=== PATIENT | female | born 1985 ===

== ENCOUNTER 2017-07-28 21:29 | Emergency (ER) | payer MEDICAID ==
[2017-07-28 21:31] VITALS: BMI 25.4
[2017-07-28 21:34] VITALS: BP 104/63; TEMP 97.3
--- NOTE | 2017-07-28 21:44 | ED PDOC ---
HPI: Seizure Time Seen by Provider: 07/28/17 21:44 Chief Complaint (Nursing): Seizure Chief Complaint (Provider): Seizure History Per: Patient Additional Complaint(s): Patient is a 32 yo female, PMH of Epilepsy, Bipolar, Depression, Anxiety and Schizophrenia, presents to ED after suffering a witnessed seizure at home, lasting "10 minutes," according to Pts cousin. Pt's cousin reports he caught her and laid her down on the floor during seizure, ontop of a pillow, no head injury sustained. Pt admits to not taking her Dilantin for ~ 6 months now. Admits to heroin and marijuana use yesterday. AA&OX3. Speech clear. Pt bit her tongue during event. Past Medical History Reviewed: Nursing Documentation, Vital Signs Vital Signs: Last Vital Signs Temp 97.3 F L 07/28/17 21:31 Pulse 81 07/28/17 21:31 Resp 16 07/28/17 21:31 BP 104/63 07/28/17 21:31 Pulse Ox 96 07/28/17 22:03 - Medical History PMH: Anxiety, Depression, Parkinson's Disease Denies: Diabetes, Hepatitis, HIV, HTN, Seizures, Sexually Transmitted Disease - Surgical History Other surgeries: left ectopic - Family History Family History: States: Unknown Family Hx - Living Arrangements Living Arrangements: With Family - Social History Current smoker - smoking cessation education provided: No Alcohol: Social Drugs: Cannabis, Cocaine (former usage), Methamphetamine, Other (heroin last used yesterday) - Immunization History Hx Tetanus Toxoid Vaccination: No Hx Influenza Vaccination: No Hx Pneumococcal Vaccination: No - Home Medications Home Medications: Ambulatory Orders Medication Instructions Recorded Gabapentin [Neurontin] 300 mg PO BID #60 cap 07/25/17 Claiborne Carbonate [Claiborne 300 mg PO TID #90 cap 07/25/17 Carbonate 300MG] Phenytoin, Extended [Dilantin] 100 mg PO BID #90 cer 07/25/17 traZODone [Desyrel] 50 mg PO HS #30 tab 07/25/17 - Allergies Allergies/Adverse Reactions: Allergies Allergy/AdvReac Type Severity Reaction Status Date / Time No Known Allergies Allergy Unverified 07/22/17 11:40 Review of Systems ROS Statement: Except As Marked, All Systems Reviewed And Found Negative Neurological: Positive for: Seizures Physical Exam - Reviewed Nursing Documentation Reviewed: Yes Vital Signs Reviewed: Yes - Physical Exam Appears: Positive for: Well, Non-toxic, No Acute Distress Head Exam: Positive for: ATRAUMATIC, NORMAL INSPECTION, NORMOCEPHALIC Skin: Positive for: Normal Color, Warm, DRY Eye Exam: Positive for: EOMI, Normal appearance, PERRL ENT: Positive for: Normal ENT Inspection, Other ((+) tongue bit, no active bleed at this time) Neck: Positive for: Normal, Painless ROM Cardiovascular/Chest: Positive for: Regular Rate, Rhythm Respiratory: Positive for: CNT, Normal Breath Sounds Gastrointestinal/Abdominal: Positive for: Normal Exam, Bowel Sounds, Soft Back: Positive for: Normal Inspection Extremity: Positive for: Normal ROM Neurologic/Psych: Positive for: Alert, Oriented - Laboratory Results Result Diagrams: 07/28/17 23:06 07/28/17 23:06 - ECG O2 Sat by Pulse Oximetry: 96 Medical Decision Making Medical Decision Making: EKG NSR at 67 bpm, no acute ST changes, as read by JOCELYN Pt placed on cardiac rn, vitals stable IV access established and diagnostics ordered Labs resulted and reviewed with pt who demonstrated full understanding medicated with Dilantin PO Disposition - Clinical Impression Clinical Impression: Simple seizure, Polysubstance abuse - Patient ED Disposition Is Patient to be Admitted: No - Disposition Disposition: Routine/Home Disposition Time: 04:53 Condition: STABLE Instructions: Polysubstance Abuse (ED) Forms: [facility] ([place])
[2017-07-28 23:09] LABS: BASO # 0.1 K/uL (0.0-0.2); BASO % 0.5 % (0.0-2.0); EOS # 0.1 K/uL (0.0-0.7); EOS % 0.8 % (0.0-4.0); HEMATOCRIT 40.6 % (34.0-47.0); LYMPH # 2.7 K/uL (1.0-4.3); LYMPH % 24.5 % (20.0-40.0); MEAN CELL VOLUME 90.6 fl (81.0-99.0); MEAN CORPUSCULAR HEMOGLOBIN 29.2 pg (27.0-31.0); MEAN CORPUSCULAR HGB CONC 32.2 g/dL (33.0-37.0); MEAN PLATELET VOLUME 9.8 fl (7.2-11.7); MONO % 8.6 % (0.0-10.0); NEUT # 7.3 K/uL (1.8-7.0); NEUT % 65.6 % (50.0-75.0); NRBC % 0.1 % (0.0-0.0); RED CELL DISTRIBUTION WIDTH 13.9 % (11.5-14.5); WHITE BLOOD COUNT 11.1 K/uL (4.8-10.8)
[2017-07-28 23:43] LABS: ALB/GLOB RATIO 1.3 (1.0-2.1); ALCOHOL SERUM < 10 mg/dl (0-10); ALKALINE PHOSPHATASE 82 U/L (38-126); ALT/SGPT 47 U/L (9-52); AST/SGOT 34 U/L (14-36); BILIRUBIN,TOTAL 0.4 mg/dl (0.2-1.3); BLOOD UREA NITROGEN 14 mg/dl (7-17); CALCIUM 9.5 mg/dL (8.4-10.2); CARBON DIOXIDE 26 mmol/L (22-30); CHLORIDE 106 mmol/L (98-107); GFR AFRICAN-AMERICAN > 60; GLUCOSE,RANDOM 105 mg/dL (65-105); MAGNESIUM 2.1 MG/DL (1.6-2.3); SODIUM 140 mmol/l (132-148); TOTAL PROTEIN 7.4 G/DL (6.3-8.2)
[2017-07-28 23:48] LABS: RBC URINE 1 /hpf (0-3); URINE BACTERIA RARE (<OCC); URINE BILIRUBIN NEGATIVE (NEGATIVE); URINE BLOOD NEGATIVE (NEGATIVE); URINE COLOR YELLOW (YELLOW); URINE GLUCOSE (UA) NEG (Normal); URINE KETONE NEGATIVE (NEGATIVE); URINE LEUKOCYTE ESTERASE TRACE Leu/uL (Negative); URINE PROTEIN NEGATIVE (NEGATIVE); URINE UROBILINOGEN 0.2-1.0 mg/dL (0.2-1.0); WBC URINE 5 /hpf (0-5)
[2017-07-28 23:50] LABS: LITHIUM < 0.2 MMOL/L (0.6-1.2)
[2017-07-29] MEDS ORDERED: Phenytoin 100 mg/4 ml Oral Susp UD PO STA (04:39)
[2017-07-29 05:27] VITALS: PULSE 67; RESP 18; O2SAT 100
--- NOTE | 2017-07-31 11:58 | CARD ---
APPROVED REPORT EKG Measurement Heart [id number] <Conclusion> Normal sinus rhythm Normal ECG
== END 2017-07-29 05:26 | disposition home or self-care (01) ==
LOC: H.ER 21:29
DX: G40.909 Epilepsy, unspecified, not intractable, without status epilepticus (principal); F12.90 Cannabis use, unspecified, uncomplicated; F11.10 Opioid abuse, uncomplicated; S01.552A Open bite of oral cavity, initial encounter; Y92.89 Other specified places as the place of occurrence of the external cause; F20.9 Schizophrenia, unspecified; F32.9 Major depressive disorder, single episode, unspecified; F41.9 Anxiety disorder, unspecified; G20 Parkinson's disease
CPT/HCPCS: 80053; 80178; 80185; 80320; 80324; 80345; 80346; 80349; 80353; 80358; 80361; 81003; 81025; 82550; 83735; 83992; 85025; 96374; 99285; J2060